=== PATIENT | male | born 1975 | race Two or more races ===

== ENCOUNTER → 2021-05-13 | Outpatient (CLI) | payer BC ==
--- NOTE | 2021-05-13 15:51 | CARD ---
MR#: [id number] Date of Study: 05/13/2021 Ordering Physician: MOISES LOVING, Referring Physician: MOISES LOVING, Tech: Yesenia Adam [facility] APPROVED REPORT EXAM: Two-dimensional and M-mode echocardiogram with Doppler and color Doppler. Other Information Quality : AverageHR: 58bpm Rhythm : NSR INDICATION Murmur RISK FACTORS Hypertension Obesity 2D DIMENSIONS RVDd3.5 (2.9-3.5cm)Left Atrium(2D)4.4 (1.6-4.0cm) IVSd1.2 (0.7-1.1cm)Aortic Root(2D)3.0 (2.0-3.7cm) LVDd4.6 (3.9-5.9cm)LVOT Diameter2.0 (1.8-2.4cm) PWd1.2 (0.7-1.1cm)LVDs3.0 (2.5-4.0cm) FS (%) 34.2 %SV61.4 ml Aortic Valve AoV Peak Bill.160.2cm/sAoV VTI32.3cm AO Peak GR.10.3mmHgLVOT Peak Bill.128.4cm/s AO Mean GR.5mmHgAVA (VMAX)2.52cm2 Mitral Valve MV E Lgzifcuu496.0cm/sMV DECEL [id number] MV A Creisbml75.3cm/sE/A Ratio1.2 Pulmonary Valve PV Peak Emrneagx327.6cm/s Tricuspid Valve TR P. Soqwytuy877pd/sTR Peak Gr.25mmHg LEFT VENTRICLE The left ventricle is normal size. There is borderline concentric left ventricular hypertrophy. The l eft ventricular systolic function is normal and the ejection fraction is within normal range. LV ejec tion fraction of 50 to 55%. There is normal LV segmental wall motion. The left ventricular diastolic function and filling is normal for age. RIGHT VENTRICLE The right ventricle is normal size. There is normal right ventricular wall thickness. The right ventr icular systolic function is normal. ATRIA The left atrium size is normal. The right atrium size is normal. The interatrial septum is intact wit h no evidence for an atrial septal defect or patent foramen ovale as noted on 2-D or Doppler imaging. AORTIC VALVE The aortic valve is normal in structure and function. Doppler and Color Flow revealed no significant aortic regurgitation. There is no significant aortic valvular stenosis. MITRAL VALVE The mitral valve is normal in structure and function. There is no evidence of mitral valve prolapse. There is no mitral valve stenosis. Doppler and Color Flow revealed no mitral valve regurgitation note d. TRICUSPID VALVE The tricuspid valve is normal in structure and function. Doppler and Color Flow revealed trace tricus pid regurgitation. Estimated PAP 30 mmHg. There is no tricuspid valve stenosis. PULMONIC VALVE The pulmonary valve is normal in structure and function. Doppler and Color Flow revealed no pulmonic valvular regurgitation. GREAT VESSELS The aortic root is normal in size. The ascending aorta is normal in size. The IVC is normal in size a nd collapses >50% with inspiration. PERICARDIAL EFFUSION There is no evidence of significant pericardial effusion. Critical Notification Critical Value: No <Conclusion> The left ventricle is normal size. The left ventricular systolic function is normal and the ejection fraction is within normal range. LV ejection fraction of 50 to 55%. There is borderline concentric left ventricular hypertrophy. Doppler and Color Flow revealed no significant aortic regurgitation. There is no significant aortic valvular stenosis. Doppler and Color Flow revealed no mitral valve regurgitation noted. Doppler and Color Flow revealed trace tricuspid regurgitation. Estimated PAP 30 mmHg. Signed by : Moises Loving MD Electronically Approved : 05/13/2021 15:50:50
== END ==
LOC: ECHO 14:02
PROVIDERS: ATTEND Internal Medicine Cardiovascular Disease
DX: I51.7 Cardiomegaly (principal); R01.1 Cardiac murmur, unspecified
CPT/HCPCS: 93306; C8929